=== PATIENT | male | born 1975 | race Caucasian/White ===

== ENCOUNTER 2016-10-07 23:38 | Emergency (ER) | payer SELFPAY ==
[~2016-10-07] VITALS: Ht 175.3 cm; Wt 101.5 kg
[~2016-10-07 23:38] MED LIST: LEXA10TA PO; LOSA50TA PO; METO50TA11 PO
[2016-10-07 23:59] VITALS: BP 142/105; PULSE 120; RESP 18; TEMP 98.3; O2SAT 94
[2016-10-08] MEDS ORDERED: ONDANSETRON HCL 4 MG/2 ML VIAL IV ONE ×2 (01:30→04:15)
[2016-10-08] MEDS ORDERED: SODIUM CHLORIDE 0.9% FLUSH 10 ML FLUSH IV FLUSH PRN (01:30)
[2016-10-08] MEDS: SODIUM CHLOR 0.9% 1000 ML INJ 1,000 ML IV SCH ×2 (01:33→02:39)
--- NOTE | 2016-10-08 01:38 | PD ---
HPI Chief Complaint: GI Complaint Time Seen by Provider: 01:23 Travel History International Travel<30 days: No Contact w/Intl Traveler<30days: No Traveled to known affect area: No History of Present Illness HPI The patient is a 40-year-old male but complains of nausea, vomiting and diarrhea for 9 hours. This started at 4 PM today. The patient feels dehydrated. He denies any recent foreign travel, well water ingestion, recent antibiotics, blood in the stool or vomitus or fever. He denies any history of bowel problems like regional colitis or ulcerative colitis with himself or family members. He does have some lower abdominal pain. His sister, her and the patient's niece all have similar symptoms, the patient was babysitting for them. He still has his appendix and gallbladder. PFSH Past Medical History Anxiety: Yes Heart Rhythm Problems: No Cardiac Catheterization: No Cardiovascular Problems: Yes (HTN) High Cholesterol: Yes Congestive Heart Failure: No Diabetes: No Diminished Hearing: No Endocrine: No Gastrointestinal Disorders: Yes (UMBILICAL HERNIA) Genitourinary: Yes Hypertension: Yes Implanted Vascular Access Dvce: No Musculoskeletal: No Neurologic: No Respiratory: No Immunizations Current: Yes Seizures: No Influenza Vaccination: No Past Surgical History Surgical History: No Previous Surgery Coronary Artery Bypass Graft: No Other Surgery: No Family History Family Myocardial Infarction: No Family Hypercholesterolemia: Yes (MOTHER) Social History Alcohol Use: No Tobacco Use: No Substance Use: No Allergies-Medications (Allergen,Severity, Reaction): Coded Allergies: Amoxicillin (Verified Allergy, Intermediate, HIVES, 10/08/16) Buspirone (Verified Allergy, Mild, 10/08/16) Dysphagia without shortness of breath Reported Meds & Prescriptions Reported Meds & Active Scripts Active Lexapro (Escitalopram Oxalate) 10 Mg Tab 10 Mg PO DAILY Losartan (Losartan Potassium) 50 Mg Tab 50 Mg PO DAILY Metoprolol Succinate ER 24 HR (Metoprolol Succinate) 50 Mg Tab 50 Mg PO DAILY Review of Systems Except as stated in HPI: all other systems reviewed are Neg Physical Exam Narrative GENERAL: The patient is alert, oriented 3 in moderate apparent distress with his abdominal discomfort. The patient appears moderately dehydrated. His vital signs show heart rate of 120 with blood pressure 142/105 but are otherwise normal. SKIN: Focused skin assessment warm/dry. HEAD: Atraumatic. Normocephalic. EYES: Pupils equal and round. No scleral icterus. No injection or drainage. ENT: No nasal bleeding or discharge. Mucous membranes pink and moist. NECK: Trachea midline. No JVD. CARDIOVASCULAR: Regular rate and rhythm. No murmur appreciated. RESPIRATORY: No accessory muscle use. Clear to auscultation. Breath sounds equal bilaterally. GASTROINTESTINAL: Abdomen soft, with slight discomfort in the bilateral lower quadrants to direct palpation, nondistended. Hepatic and splenic margins not palpable. No guarding or rebound is present. MUSCULOSKELETAL: No obvious deformities. No clubbing. No cyanosis. No edema. NEUROLOGICAL: Awake and alert. No obvious cranial nerve deficits. Motor grossly within normal limits. Normal speech. PSYCHIATRIC: Appropriate mood and affect; insight and judgment normal. Data Data Last Documented VS Vital Signs Date Time Temp Pulse Resp B/P Pulse Ox O2 Delivery O2 Flow Rate FiO2 10/08/16 04:12 108 96 Room Air 10/08/16 02:41 98.7 18 136/84 Orders Sodium Chlor 0.9% 1000 Ml Inj (Ns 1000 M (10/08/16 01:30) Ondansetron Inj (Zofran Inj) (10/08/16 01:30) Complete Blood Count With Diff (10/08/16 01:29) Comprehensive Metabolic Panel (10/08/16 01:29) Lipase (10/08/16 01:29) Urinalysis - C+S If Indicated (10/08/16 01:29) Iv Access Insert/Monitor (10/08/16 01:29) Ecg Monitoring (10/08/16 01:29) Oximetry (10/08/16 01:29) Sodium Chloride 0.9% Flush (Ns Flush) (10/08/16 01:30) Ondansetron Inj (Zofran Inj) (10/08/16 04:15) Metoclopramide Inj (Reglan Inj) (10/08/16 05:00) Labs Laboratory Tests Test 10/08/16 10/08/16 01:18 04:00 White Blood Count 16.1 TH/MM3 Red Blood Count 5.96 MIL/MM3 Hemoglobin 16.8 GM/DL Hematocrit 50.3 % Mean Corpuscular Volume 84.4 FL Mean Corpuscular Hemoglobin 28.3 PG Mean Corpuscular Hemoglobin 33.5 % Concent Red Cell Distribution Width 12.4 % Platelet Count 236 TH/MM3 Mean Platelet Volume 9.1 FL Neutrophils (%) (Auto) 90.6 % Lymphocytes (%) (Auto) 4.4 % Monocytes (%) (Auto) 3.3 % Eosinophils (%) (Auto) 0.2 % Basophils (%) (Auto) 1.5 % Neutrophils # (Auto) 14.8 TH/MM3 Lymphocytes # (Auto) 0.7 TH/MM3 Monocytes # (Auto) 0.5 TH/MM3 Eosinophils # (Auto) 0.0 TH/MM3 Basophils # (Auto) 0.2 TH/MM3 CBC Comment DIFF FINAL Differential Comment Sodium Level 138 MEQ/L Potassium Level 5.9 MEQ/L Chloride Level 102 MEQ/L Carbon Dioxide Level 26.6 MEQ/L Anion Gap 9 MEQ/L Blood Urea Nitrogen 20 MG/DL Creatinine 1.30 MG/DL Estimat Glomerular Filtration 61 ML/MIN Rate Random Glucose 137 MG/DL Calcium Level 8.7 MG/DL Total Bilirubin 0.6 MG/DL Aspartate Amino Transf 48 U/L (AST/SGOT) Alanine Aminotransferase 50 U/L (ALT/SGPT) Alkaline Phosphatase 87 U/L Total Protein 8.3 GM/DL Albumin 3.8 GM/DL Lipase 144 U/L Urine Color YELLOW Urine Turbidity CLEAR Urine pH 7.0 Urine Specific [place] 1.021 Urine Protein NEG mg/dL Urine Glucose (UA) NEG mg/dL Urine Ketones NEG mg/dL Urine Occult Blood NEG Urine Nitrite NEG Urine Bilirubin NEG Urine Leukocyte Esterase NEG Urine RBC 0-2 /hpf Urine WBC 0-2 /hpf Urine Squamous Epithelial 0-5 /hpf Cells Urine Bacteria NONE /hpf Microscopic Urinalysis Comment CULT NOT INDICATED MDM Medical Decision Making Medical Screen Exam Complete: Yes Emergency Medical Condition: Yes Medical Record Reviewed: Yes Interpretation(s) The CBC shows a white count of 16,100 with 91% neutrophils. The potassium is 5.9, BUN 20, glucose 137 with AST of 48 but the complete metabolic profile is otherwise normal. The lipase is normal. Differential Diagnosis Viral gastroenteritis, colitis, pancreatitis, cholecystitis, urinary tract infection, dehydration, electrolyte disorder, hypo-/hyperglycemia, other metabolic disorder Narrative Course It is now 0528 and the patient is drinking Gatorade successfully. Impression: Gastroenteritis Procedures EKG Prior to Arrival: No EKG Not Completed: EKG Not Medically Necessary Diagnosis Primary Impression: Gastroenteritis Additional Impression: Dehydration Additional Instructions: As we discussed, take the Phenergan regularly, 1 tablet every 6 hours. You may need to return to the emergency department if you continue to vomit at home. Follow-up with your primary care physician next week. We discussed the signs and symptoms of appendicitis with pain in the right lower quadrant, return immediately if these occur. Med/Other Pt SpecificInfo: Prescription(s) given Scripts Promethazine (Phenergan)25 Mg Tab25 Mg PO Q6H PRN (Nausea/Vomiting) #30 TAB Ref 0 Prov:Nahid Woods MD 10/08/16 Disposition: DISCHARGE HOME Condition: Stable Nahid Woods MD Oct 08, 2016 01:38
[2016-10-08 01:40] LABS: AUTOMATED NEUTROPHIL # 14.8 TH/MM3 (1.8-7.7); BASOPHIL # 0.2 TH/MM3 (0-0.2); BASOPHIL % 1.5 % (0.0-2.0); EOSINOPHIL % 0.2 % (0.0-4.0); HEMATOCRIT 50.3 % (39.0-51.0); LYMPH % 4.4 % (9.0-44.0); LYMPHOCYTE # 0.7 TH/MM3 (1.0-4.8); MEAN CELL VOLUME 84.4 FL (80.0-100.0); MEAN CORPUSCULAR HEMOGLOBIN 28.3 PG (27.0-34.0); MEAN CORPUSCULAR HGB CONC 33.5 % (32.0-36.0); MONO % 3.3 % (0.0-8.0); NEUT % 90.6 % (16.0-70.0); PLATELET COUNT 236 TH/MM3 (150-450); RED BLOOD COUNT 5.96 MIL/MM3 (4.50-5.90); RED CELL DISTRIBUTION WIDTH 12.4 % (11.6-17.2); WHITE BLOOD COUNT 16.1 TH/MM3 (4.0-11.0)
[2016-10-08 01:41] LABS: HEMO FLAGS DIFF FINAL
[2016-10-08 01:42] VITALS: PULSE 102; O2SAT 96
[2016-10-08 01:43] VITALS: PULSE 102; O2SAT 96
[2016-10-08 01:47] LABS: CHLORIDE 102 MEQ/L (98-107); POTASSIUM 5.9 MEQ/L (3.5-5.1); SODIUM (NA) 138 MEQ/L (136-145)
[2016-10-08 01:51] LABS: ANION GAP 9 MEQ/L (5-15); BICARBONATE 26.6 MEQ/L (21.0-32.0); BLOOD UREA NITROGEN 20 MG/DL (7-18)
[2016-10-08 01:54] LABS: ALT (GPT) 50 U/L (12-78); AST (GOT) 48 U/L (15-37); GLOMERULAR FILTRATION RATE 61 ML/MIN (>89)
[2016-10-08 01:56] LABS: TOTAL BILIRUBIN ADULT 0.6 MG/DL (0.2-1.0)
[2016-10-08 01:57] LABS: ALKALINE PHOSPHATASE 87 U/L (45-117)
[2016-10-08 02:41] VITALS: BP 136/84; PULSE 106; RESP 18; TEMP 98.7; O2SAT 98
[2016-10-08 04:07] LABS: BLOOD, URINE NEG (NEG); GLUCOSE,URINE NEG (NEG); KETONE, URINE NEG (NEG); NITRITE,URINE NEG (NEG)
[2016-10-08 04:12] VITALS: PULSE 108; O2SAT 96
[2016-10-08 04:15] LABS: COMMENT (UR) CULT NOT INDICATED; CULTURE IF INDICATED CULT NOT INDICATED; RBC, URINE 0-2 /hpf (0-3); SQUAMOUS EPITHELIAL CELL URINE 0-5 /hpf (0-5); URINE COLOR YELLOW (YELLW/STRAW); WBC, URINE 0-2 /hpf (0-5)
[2016-10-08] MEDS ORDERED: METOCLOPRAMIDE HCL 10 MG/2 ML VIAL IVS ONE (05:00)
[2016-10-08] MEDS ORDERED: PROM25TA5 PO (05:34)
[2016-12-01] MEDS ORDERED: LOSA50TA PO (14:10)
[2016-12-01] MEDS ORDERED: LEXA10TA PO (14:10)
[2016-12-01] MEDS ORDERED: METO50TA11 PO (14:11)
[2016-12-08] MEDS ORDERED: LOSA50TA PO (10:07)
[2017-01-06] MEDS ORDERED: METO50TA11 PO ×2 (07:33→11:06)
[2017-01-06] MEDS ORDERED: LOSA50TA PO (11:05)
[2017-01-06] MEDS ORDERED: LEXA10TA PO (11:07)
[2017-01-08] MEDS ORDERED: LOSA50TA PO (09:47)
[2017-01-08] MEDS ORDERED: METO50TA11 PO (09:47)
[2017-01-08] MEDS ORDERED: LEXA10TA PO (09:47)
== END 2016-10-08 05:45 | disposition home or self-care (01) ==
LOC: PHED 23:38
DX: K52.9 Noninfective gastroenteritis and colitis, unspecified (principal); E86.0 Dehydration; I10 Essential (primary) hypertension; F41.9 Anxiety disorder, unspecified; Z79.899 Other long term (current) drug therapy
CPT/HCPCS: 80053; 81001; 83690; 85025; 96361; 96374; 96375; 96376; 99283; J2405; J2765; J7030

== ENCOUNTER → 2017-01-27 | Outpatient (CLI) | payer OTHER ==
[~2017-01-27] MED LIST changes: +PROM25TA5 PO
[2017-01-27 16:25] LABS: HDL CHOLESTEROL 48.3 MG/DL (40.0-60.0)
== END ==
LOC: PLAB 11:27
PROVIDERS: ATTEND Family Medicine
DX: E78.5 Hyperlipidemia, unspecified (principal)
CPT/HCPCS: 36415; 80061